=== PATIENT | female | born 1945 | race Caucasian/White ===

== ENCOUNTER 2019-10-25 08:09 | Inpatient (IN) ==
[2019-10-25] MEDS ORDERED: NICOTINE 21 MG/24 HR PATCH TRANSDERM PRN (08:22)
[2019-10-25] MEDS ORDERED: SIMETHICONE CHEW 125 MG TABLET PO PRN (08:22)
[2019-10-25] MEDS ORDERED: DOCUSATE SODIUM 100 MG CAPSULE PO PRN (08:22)
[2019-10-25] MEDS ORDERED: ZALEPLON 5 MG CAPSULE PO PRN (08:22)
[2019-10-25] MEDS ORDERED: guaiFENesin/DM ER 600-30 MG TABLET PO PRN (08:22)
[2019-10-25] MEDS ORDERED: ASPIRIN CHEW 81 MG TABLET PO ONE (08:22)
[2019-10-25] MEDS ORDERED: POTASSIUM CHLORIDE 20 MEQ TABLET PO PRN (08:22)
[2019-10-25] MEDS ORDERED: MAGNESIUM SULF RIDER 2 GM in PREMIX 1 EACH IV PRN (08:22)
[2019-10-25] MEDS ORDERED: PROMETHAZINE 25 MG TABLET PO PRN (08:22)
[2019-10-25] MEDS ORDERED: DIAZEPAM 5 MG TABLET PO ONE (08:22)
[2019-10-25] MEDS ORDERED: ALUMINUM/MAGNES/SIMETH MAX STR 30 ML UDCUP PO PRN (08:22)
[2019-10-25] MEDS ORDERED: diphenhydrAMINE CAP 25 MG CAPSULE PO PRN (08:22)
[2019-10-25] MEDS ORDERED: MORPHINE 4 MG/1 ML VIAL IV PRN (08:22)
[2019-10-25] MEDS ORDERED: ONDANSETRON 4 MG/2 ML VIAL IV PRN (08:22)
[2019-10-25] MEDS ORDERED: POTASSIUM CHLORIDE RIDER 10 MEQ in PREMIX 1 EACH IV PRN (08:22)
[2019-10-25] MEDS ORDERED: hydrALAZINE 20 MG/1 ML VIAL IV PRN (08:22)
[2019-10-25] MEDS ORDERED: ACETAMINOPHEN 325 MG TABLET PO PRN (08:22)
[2019-10-25] MEDS ORDERED: BISACODYL 5 MG TABLET PO PRN (08:22)
[2019-10-25] MEDS ORDERED: diphenhydrAMINE CAP 25 MG CAPSULE PO ONE (08:22)
[2019-10-25] MEDS ORDERED: SODIUM CHLORIDE 0.9% 1,000 ML IV SCH ×2 (08:30→14:30)
[2019-10-25 11:23] LABS: Basophils # 0.1 10*3/uL (0.0-0.2); Basophils % 0.8 % (0.0-0.8); Eosinophils # 0.1 10*3/uL (0.0-0.87); Hematocrit 42.5 VOL% (35.7-47.0); Immature Granulocytes % 0.6 %; Immature Granulocytes Absolute 0.06 #; Lymphocytes # 2.5 10*3/uL (1.4-4.0); Lymphocytes % 26.3 % (21.3-54.2); Mean Corpuscular HGB Conc 30.6 GM/DL (32-36); Mean Corpuscular Volume 99.1 FL (87-102); Mean Platelet Volume 11.1 FL (9.6-12.0); Monocytes % 8.5 % (1.7-12.7); Neutrophils % 62.8 % (38.7-73.9); Platelet Count 241 T/CUMM (130-400); Red Blood Count 4.29 MC/CUMM (3.8-5.5); Red Cell Distribution Width 13.2 % (9.3-17.3); White Blood Count 9.3 T/CUMM (4-12)
[2019-10-25 11:45] LABS: Troponin I 0.625 NG/ML (0.00-0.045)
[2019-10-25 11:54] LABS: Albumin 3.5 G/DL (3.4-5.0); Bilirubin,Total 0.6 MG/DL (0.2-1.0); Calcium 10.6 MG/DL (8.5-10.1); Risk Ratio 3.97; Total Protein 7.3 G/DL (6.4-8.3); VLDL CHOLESTEROL 22.6 MG/DL
[2019-10-25 12:01] LABS: Osmolality,Calculated 280.5 MOS/KG (273-304)
[2019-10-25] MEDS ORDERED: LIDOCAINE 1% 20 ML VIAL ONE (12:24)
[2019-10-25] MEDS ORDERED: HEPARIN/NACL 0.9% 2 UNITS/ML 1,000 ML IV ONE (12:24)
[2019-10-25] MEDS ORDERED: NITROGLYCERIN DRIP 50 MG/250 ML BOTTLE IV ONE (12:50)
[2019-10-25] MEDS ORDERED: VERAPAMIL 5 MG/2 ML VIAL ONE (12:51)
[2019-10-25] MEDS ORDERED: MIDAZOLAM 2 MG/2 ML VIAL ONE (12:53)
[2019-10-25] MEDS ORDERED: HYDROmorphone 2 MG/1 ML VIAL ONE (12:53)
[2019-10-25] MEDS ORDERED: ENOXAPARIN 30 MG/0.3 ML SYRINGE ONE (13:04)
[2019-10-25] MEDS ORDERED: BIVALIRUDIN 250 MG VIAL IV ONE (13:11)
[2019-10-25] MEDS ORDERED: BIVALIRUDIN 250 MG in SODIUM CHLORIDE 0.9% 50 ML IV SCH (13:21)
[2019-10-25] MEDS ORDERED: CLOPIDOGREL 300 MG TABLET ONE (13:35)
[2019-10-25] MEDS: PANTOPRAZOLE 40 MG TABLET PO SCH (14:35)
[2019-10-25] MEDS ORDERED: amLODIPine 10 MG TABLET PO SCH (21:00)
[2019-10-25] MEDS ORDERED: ROSUVASTATIN 20 MG TABLET PO SCH (21:00)
[2019-10-25] MEDS: METOPROLOL TARTRATE 25 MG TABLET PO SCH (21:21)
[2019-10-26 05:41] LABS: Basophils % 0.3 % (0.0-0.8); Eosinophils # 0.1 10*3/uL (0.0-0.87); Eosinophils % 0.7 % (0.00-10.9); Hematocrit 34.2 VOL% (35.7-47.0); Hemoglobin 10.5 GM/DL (12.0-16.0); Immature Granulocytes % 0.6 %; Immature Granulocytes Absolute 0.06 #; Lymphocytes # 2.2 10*3/uL (1.4-4.0); Lymphocytes % 21.3 % (21.3-54.2); Mean Corpuscular HGB Conc 30.7 GM/DL (32-36); Mean Corpuscular Volume 99.7 FL (87-102); Mean Platelet Volume 11.3 FL (9.6-12.0); Monocytes % 7.3 % (1.7-12.7); Neutrophils % 69.8 % (38.7-73.9); Platelet Count 190 T/CUMM (130-400); Red Blood Count 3.43 MC/CUMM (3.8-5.5); Red Cell Distribution Width 13.2 % (9.3-17.3); White Blood Count 10.2 T/CUMM (4-12)
[2019-10-26 06:01] LABS: CKMB % 16.3 %; Calcium 9.2 MG/DL (8.5-10.1); Osmolality,Calculated 285.3 MOS/KG (273-304)
[2019-10-26 06:25] LABS: Troponin I 2.79 NG/ML (0.00-0.045)
[2019-10-26] MEDS ORDERED: POTASSIUM CHLORIDE 20 MEQ TABLET PO ONE (07:09)
[2019-10-26] MEDS ORDERED: LOSARTAN 50 MG TABLET PO SCH (09:00)
[2019-10-26] MEDS ORDERED: POTASSIUM CHLORIDE 20 MEQ TABLET PO SCH (09:00)
[2019-10-26] MEDS ORDERED: CITALOPRAM 20 MG TABLET PO SCH (09:00)
[2019-10-26] MEDS ORDERED: ASPIRIN EC 81 MG TABLET PO SCH ×2 (09:00)
[2019-10-26] MEDS ORDERED: CLOPIDOGREL 75 MG TABLET PO SCH (09:00)
[2019-10-26] MEDS: PANTOPRAZOLE 40 MG TABLET PO SCH (09:10)
[2019-10-26] MEDS: METOPROLOL TARTRATE 25 MG TABLET PO SCH (09:10)
[2019-10-26 09:48] LABS: CKMB % 14.3 %
[2019-10-26 09:50] LABS: Troponin I 2.76 NG/ML (0.00-0.045)
[2019-10-26 12:07] VITALS: BP 101/51
== END 2019-10-26 12:17 | disposition home or self-care (01) | DRG 247 ==
LOC: N.TELES 10:47
PROVIDERS: ADMIT Internal Medicine Cardiovascular Disease; ATTEND Internal Medicine Cardiovascular Disease